=== PATIENT | female | born 1985 | race Caucasian/White ===

== ENCOUNTER 2018-12-23 18:34 | Outpatient (CLI) | payer MEDICAID ==
[~2018-12-23] VITALS: Ht 170.2 cm; Wt 100.0 kg
--- NOTE | 2018-12-23 18:40 | NUR ---
1840- Patient being seen today with c/o of tightness in abdomen and back that comes and goes. EFM applied. VSS. SVE closed, 25%,-2 station, intact.
[2018-12-23 18:54] VITALS: BP 135/75; PULSE 81; TEMP 98.2
[2018-12-23 19:00] VITALS: BP 135/75; PULSE 81; TEMP 98.2
[2018-12-23] MEDS ORDERED: PRENATAL 191 TAB PO (19:02)
[2018-12-23] MEDS ORDERED: TUMS EXTRA STR750 MG PO (19:02)
[2018-12-23 19:19] LABS: COLLECTION METHOD CLEAN CATCH
[2018-12-23 19:52] LABS: PH 6 (5-8); URINE APPEARANCE Hazy; URINE BACTERIA Rare /hpf; URINE BILIRUBIN Negative (NEGATIVE); URINE BLOOD Negative (NEGATIVE); URINE COLOR Yellow; URINE GLUCOSE Negative (NEGATIVE); URINE KETONE Negative (NEGATIVE); URINE LEUKOCYTE ESTERASE Negative (NEGATIVE); URINE NITRATE Negative (NEGATIVE); URINE PROTEIN(semi-quant) Negative (NEGATIVE); URINE RBC 0-2 /hpf; URINE UROBILINOGEN Negative (NEGATIVE); URINE WBC 0-2 /hpf
== END 2018-12-23 20:00 | disposition home or self-care (01) ==
LOC: LDRO 18:34
PROVIDERS: Obstetrics & Gynecology
DX: O99.89 Other specified diseases and conditions complicating pregnancy, childbirth and the puerperium (principal); Z3A.26 26 weeks gestation of pregnancy

== ENCOUNTER 2019-02-24 12:13 | Outpatient (CLI) | payer MEDICAID ==
[~2019-02-24] VITALS: Ht 170.2 cm; Wt 99.8 kg
[2019-02-24 12:10] VITALS: BP 135/72; PULSE 75; TEMP 98.4
--- NOTE | 2019-02-24 12:10 | NUR ---
Patient to LR3 via stretcher and EMS. She c/o "sharp pains in her pelvis and lower abdomen". She is a G4L3 at 35.1 weeks gestation with previous c/s x3. Patient changed into gown and wedged to left side in bed. EFMs explained and applied. FHR 135 bpm and reactive. VSS. Assessment completed. Patient denies LOF or vaginal bleeding. SVE closed/50/high. Plan of care reviewed.
[~2019-02-24 12:13] MED LIST: PRENATAL 191 TAB PO; TUMS EXTRA STR750 MG PO
--- NOTE | 2019-02-24 13:10 | NUR ---
Discharge instructions reviewed with patient and spouse.
== END 2019-02-24 13:10 ==
LOC: LDRO 12:13 → LDR 12:13 → LDRO 12:14 → LDR 12:14 → LDRO 13:10
DX: R10.2 Pelvic and perineal pain (principal); R10.30 Lower abdominal pain, unspecified
CPT/HCPCS: OP

== ENCOUNTER 2019-03-06 18:39 | Outpatient (CLI) | payer MEDICAID ==
[~2019-03-06] VITALS: Ht 165.1 cm; Wt 111.4 kg
--- NOTE | 2019-03-06 18:45 | NUR ---
184- PT PRESENTS TO LDR COMPLAINING OF DECREASED MOVEMENT, AMBULATORY TO ROOM LR5, CHANGED INTO GOWN. 1847- EFM X2 APPLIED. MOVEMENT HEARD ON HEART MONITOR. PT DENIES BLEEDING AND CONTRACTIONS, BUT STATES SHE HAS HAD INCREASED DISCHARGE. PT STATES SHE FELT THE BABY MOVE TWICE EARLIER TODAY BUT NOTHING RECENTLY. 1899- NURSING ADMISSION HISTORY AND ASSESSMENT COMPLETE. AMNITRACE NEGATIVE FOR AMNIOTIC FLUID. 1921- DR LLANOS CALLED AND UPDATED WITH PT HISTORY, COMPLAINT, EFM TRACING, AMNITRACE AND MOVEMENT ON MONITOR. ORDERS RECEIVED FOR DISMISSAL. 1929- PT UPDATED ON PLAN OF CARE AND OFF MONITORS FOR DISMISSAL. 1939- DISMISSAL INSTRUCTIONS GIVEN INCLUDING INSTRUCTIONS ON KICK COUNTS. PT VERBALIZES UNDERSTANDING. PT SIGNS DISCHARGE SHEET AND IS DISMISSED TO HOME AMBULATOR ACCOMPANIED BY .
[2019-03-06 19:00] VITALS: BP 140/87; PULSE 98; TEMP 99
[2019-03-06] MEDS ORDERED: PRIL40 PO (19:11)
[2019-03-06 19:30] VITALS: BP 137/86; PULSE 94
== END 2019-03-06 19:40 | disposition home or self-care (01) ==
LOC: LDRO 18:39 → LDR 18:39 → LDRO 19:40
DX: O36.8130 Decreased fetal movements, third trimester, not applicable or unspecified (principal); Z3A.36 36 weeks gestation of pregnancy
CPT/HCPCS: OP

== ENCOUNTER 2019-03-23 05:30 | Inpatient (IN) | payer MEDICAID ==
[2019-03-23] VITALS (18 sets, daily range): BP systolic 103–134; BP diastolic 56–88; PULSE 70–100; TEMP 97.8–98.3
[~2019-03-23] VITALS: Ht 165.2 cm; Wt 111.4 kg
--- NOTE | 2019-03-23 05:25 | NUR ---
G4L3 at 39 weeks arrives to unit ambulatory for scheduled . Pt denies feeling contractions, denies vaginal bleeding, and reports good movement. Pt denies headaches, blurry vision, or RUQ pain. US and toco explained and applied. Plan of care reviewed. 0540 18 gauge IV in left wrist with 1 attempt. Admission labs obtained off of IV start. Lactated Ringers bolus infusing to gravity.
[~2019-03-23 05:30] MED LIST changes: +PRIL40 PO
--- NOTE | 2019-03-23 06:00 | NUR ---
Consents reviewed and signed with patient and spouse.
[2019-03-23 06:11] LABS: BASO % 0.4 % (0.0-2.0); EOS # 0.1 (0.0-0.7); EOS % 0.6 % (0-4.0); GRAN # 5.2 (1.4-6.5); GRAN % 61.7 % (42.2-75.2); HEMATOCRIT 37.8 % (37.0-47.0); HEMOGLOBIN 12.6 g/dl (12.5-16.0); LYMPH # 2.5 (1.2-3.4); LYMPH % 29.4 % (20.0-51.0); MEAN CELL VOLUME 85 fl (80.0-100.0); MEAN CORPUSCULAR HEMOGLOBIN 28 pg (27.0-31.0); MEAN CORPUSCULAR HGB CONC 33 g/dl (33.0-37.0); MEAN PLATELET VOLUME 10.8 fl (7.4-10.4); MONO # 0.6 (0.1-0.6); MONO % 6.7 % (1.7-9.3); PLATELET COUNT 258 K/mm3 (130-400); RED BLOOD COUNT 4.44 M/mm3 (4.10-5.30); REDCELL DISTRIBUTION WIDTH-CV 14.2 % (11.5-14.5)
[2019-03-23] MEDS ORDERED: TYLENOL 500MG500 MG PO (06:35)
[2019-03-23 07:26] LABS: TRICYCLIC ANTIDEPRESS URINE NEGATIVE
--- NOTE | 2019-03-23 15:00 | NUR ---
Patient sitting on edge of bed and dangles feet, patient ambulates with standby assist to bathroom, weller catheter removed and patient tolerates well. Pericare done and new gown/pad/underwear on. Patient ambulates back to bed. Plan of care discussed.
--- NOTE | 2019-03-23 15:04 | NUR ---
building service worker met with patient and her spouse to assess needs. Patient and spouse state they grew up in [place] and moved to [place] as spouse has cousins and they are supportive. Patient and spouse are currently residing in the cousin's 5th wheel travel trailer. It doesn't have water/air/heating, however patient/spouse take showers in the cousin's home, drink bottled water and state it has cool temperatures. Patient/spouse have begun looking at rental housing starting in April as they know they cannot heat the trailer. Spouse states he has a car and works in [place] and that they are exploring housing in [place] versus [place] to be near cousins. Patient states she is enrolled in [facility] and utilizes [place] office. Patient and spouse state they have car seat, bassinet, and packnplay as well as diapers and all other supplies for the baby. Worker explored patient's history of depression. Patient became tearful as she described using drugs and losing her children "about 9 years ago". Patient states she has stopped using drugs and stopped smoking when she found out she was . Worker provided information on [facility]. Patient states she does not feel she needs mental health support at this time. Patient states she was forced to do an open adoption due to be homeless and addicted to drugs. Patient states that the paternal grandparents adopted her children and that they don't support her seeing the children. Spouse states they are familiar with [facility] as they have received food support there. Worker provided resource information packet. Spouse states his income is supportive of renting a property and they are currently looking at options. Worker contacted Lenny, financial counselor, and confirmed he will meet with patient and spouse this date to secure that is placed on [employer] insurance. Worker spoke with Dr Keys regarding above information. Patient tested negative for illegal drugs in system and we are awaiting cord blood.
--- NOTE | 2019-03-23 15:21 | NUR ---
Patient and spouse state that an Aunt gave them a check for $5,000.00 and that they are saving it to put a deposit down on housing.
[2019-03-24 02:12] VITALS: BP 113/62; PULSE 96; TEMP 98.4
[2019-03-24 07:15] VITALS: BP 121/79; PULSE 89; TEMP 97.8
[2019-03-24 07:52] LABS: HEMOGLOBIN 11.8 g/dl (12.5-16.0)
[2019-03-24 07:53] LABS: HEMATOCRIT 35.5 % (37.0-47.0)
[2019-03-24] MEDS ORDERED: PERCOCET 325 MG1 TA2 PO (10:44)
[2019-03-24] MEDS ORDERED: IBU600 MG PO (10:44)
--- NOTE | 2019-03-24 11:41 | NUR ---
Concratulated the family on behalf of [facility].
[2019-03-24 16:00] VITALS: BP 131/79; PULSE 86; TEMP 97.8
[2019-03-24 19:30] VITALS: BP 143/84; PULSE 87; TEMP 98.7
[2019-03-25 08:15] VITALS: BP 125/68; PULSE 92; TEMP 98.8
== END 2019-03-25 12:15 | disposition home or self-care (01) | DRG 788 ==
LOC: OB 05:30
PROVIDERS: ADMIT Obstetrics & Gynecology
PROC: 10D00Z1 Extraction of Products of Conception, Low, Open Approach (ICD-10-PCS; principal; 2019-03-23)
DX: O34.219 Maternal care for unspecified type scar from previous cesarean delivery (principal); O99.214 Obesity complicating childbirth; O99.62 Diseases of the digestive system complicating childbirth; O99.344 Other mental disorders complicating childbirth; E66.9 Obesity, unspecified; K21.9 Gastro-esophageal reflux disease without esophagitis; F32.9 Major depressive disorder, single episode, unspecified; Z3A.39 39 weeks gestation of pregnancy; Z37.0 Single live birth
CPT/HCPCS: J0690; J1885; J2270; J2370; J2405; J2590; J7120

== ENCOUNTER 2020-06-21 10:34 | Emergency (ER) | payer SELFPAY ==
[~2020-06-21] VITALS: Ht 165.1 cm; Wt 104.5 kg
[~2020-06-21 10:34] MED LIST changes: +IBU600 MG PO; +PERCOCET 325 MG1 TA2 PO; +TYLENOL 500MG500 MG PO
[2020-06-21 10:42] VITALS: BP 130/80; TEMP 98.3
[2020-06-21] MEDS ORDERED: PEN-VEE K500 MG PO (10:59)
[2020-06-21] MEDS ORDERED: NORCO 325 MG-51 TAB PO (11:22)
[2020-06-21 11:30] VITALS: PULSE 90
== END 2020-06-21 11:30 | disposition home or self-care (01) ==
LOC: COL.ER 10:34
DX: K08.89 Other specified disorders of teeth and supporting structures (principal); F17.200 Nicotine dependence, unspecified, uncomplicated

== ENCOUNTER 2021-03-11 14:31 | Emergency (ER) | payer SELFPAY ==
[~2021-03-11] VITALS: Ht 165.1 cm; Wt 100.0 kg
[~2021-03-11 14:31] MED LIST changes: +NORCO 325 MG-51 TAB PO; +PEN-VEE K500 MG PO
[2021-03-11 19:03] VITALS: BP 154/85; PULSE 87; TEMP 97.8
== END 2021-03-11 19:03 | disposition home or self-care (01) ==
LOC: COL.ER 14:31
DX: L50.9 Urticaria, unspecified (principal); F17.210 Nicotine dependence, cigarettes, uncomplicated
CPT/HCPCS: J1040; J1200

== ENCOUNTER 2022-04-02 19:31 | Emergency (ER) | payer SELFPAY ==
[~2022-04-02] VITALS: Ht 165.1 cm; Wt 100.0 kg
[2022-04-02 19:33] VITALS: TEMP 98
[2022-04-02 20:41] VITALS: BP 155/94; PULSE 94
== END 2022-04-02 20:41 | disposition home or self-care (01) ==
LOC: COL.ER 19:31
DX: H60.91 Unspecified otitis externa, right ear (principal); F17.210 Nicotine dependence, cigarettes, uncomplicated; Z28.310 Unvaccinated for COVID-19

== ENCOUNTER 2024-02-19 14:13 | Emergency (ER) | payer SELFPAY ==
[~2024-02-19] VITALS: Ht 165.1 cm; Wt 100.0 kg
[2024-02-19 14:28] VITALS: TEMP 98.9
[2024-02-19 16:51] VITALS: BP 140/80; PULSE 76
== END 2024-02-19 16:50 | disposition home or self-care (01) ==
LOC: COL.ER 14:13
DX: M72.0 Palmar fascial fibromatosis [Dupuytren] (principal)